=== PATIENT | male | born 1980 | race Caucasian/White ===

== ENCOUNTER 2017-03-06 08:00 | Inpatient (IN) | payer OTHER ==
[2017-03-15] MEDS ORDERED: Heparin 5,000 UNITS/ML VIAL ONE (06:10)
[2017-03-15] MEDS ORDERED: CEFAZOLIN/Water 2 GM/20 ML SYRINGE ONE (06:10)
[2017-03-15] MEDS ORDERED: Midazolam HCl 2 mg/2 ml Vial ONE (06:14)
[2017-03-15] MEDS ORDERED: Fentanyl 250 MCG/5 ML VIAL ONE (06:14)
[2017-03-15] MEDS ORDERED: Fentanyl 100 MCG/2 ML VIAL ONE ×3 (06:14→09:26)
[2017-03-15] MEDS ORDERED: Bupivacaine/Epinephrine 0.25% 30 ML VIAL ONE ×2 (06:30→06:52)
[2017-03-15] MEDS ORDERED: Bupivacaine 0.25% HCL 30 ML VIAL ONE (06:49)
[2017-03-15] MEDS ORDERED: Dexamethasone 20 MG/5 ML VIAL ONE (07:34)
[2017-03-15] MEDS ORDERED: Propofol 200 MG/20 ML VIAL ONE (07:34)
[2017-03-15] MEDS ORDERED: Ketorolac Tromethamine 30 MG/ML VIAL ONE (07:34)
[2017-03-15] MEDS ORDERED: Ondansetron HCl/PF 4 MG/2 ML Vial ONE (07:34)
[2017-03-15] MEDS ORDERED: Lidocaine 1% PF 5 ML VIAL ONE (07:34)
[2017-03-15] MEDS ORDERED: Glycopyrrolate 0.2 MG/ML 5 ML SYRINGE ONE (07:34)
[2017-03-15] MEDS ORDERED: diphenhydrAMINE 25 MG CAP PO PRN (08:06)
[2017-03-15] MEDS ORDERED: Promethazine HCl 25 MG/ML VIAL SLOW IVP PRN (08:06)
[2017-03-15] MEDS ORDERED: Ketorolac Tromethamine 30 MG/ML VIAL IVP PRN (08:06)
[2017-03-15] MEDS ORDERED: HYDROmorphone 2 MG/ML VIAL SLOW IVP PRN (08:06)
[2017-03-15] MEDS ORDERED: diphenhydrAMINE 50 MG/ML VIAL IM PRN (08:06)
[2017-03-15] MEDS ORDERED: Naloxone HCl 0.4 mg/ml Vial IV PRN (08:06)
[2017-03-15] MEDS ORDERED: Zolpidem Tartrate 5 MG TAB PO PRN (08:06)
[2017-03-15] MEDS ORDERED: Meperidine HCl/PF 25 MG/ML VIAL SLOW IVP PRN (08:06)
[2017-03-15] MEDS ORDERED: Promethazine HCl 25 MG/ML VIAL IM PRN ×3 (08:06→10:36)
[2017-03-15] MEDS ORDERED: Ondansetron HCl/PF 4 MG/2 ML Vial IVP PRN ×2 (08:06→10:36)
[2017-03-15] MEDS ORDERED: Morphine Sulfate 2 MG/ML SYRINGE SLOW IVP PRN (08:06)
[2017-03-15] MEDS ORDERED: Fentanyl 5000 MCG/250 ML CADD IVPB PRN (08:06)
[2017-03-15] MEDS ORDERED: diphenhydrAMINE 50 MG/ML VIAL IVP PRN ×2 (08:06→10:36)
[2017-03-15] MEDS ORDERED: Communication Order-Pharmacy FS SCH (08:15)
--- NOTE | 2017-03-15 09:12 | OP ---
DATE OF PROCEDURE: 03/15/2017 PREOPERATIVE DIAGNOSES: 1. Morbid obesity with body mass index of 41. 2. Hypertension. POSTOPERATIVE DIAGNOSES: 1. Morbid obesity with body mass index of 41. 2. Hypertension. PROCEDURES: 1. Laparoscopic sleeve gastrectomy with Karval staple line reinforcements and 38 Thai bougie. 2. Esophagogastroduodenoscopy. SURGEON: Steven Mccoy M.D. ANESTHESIA: General. ESTIMATED BLOOD LOSS: 50 mL. COMPLICATIONS: None. FINDINGS: Normal postoperative EGD. SPECIMEN: Stomach. INDICATIONS: The patient is a 36-year-old male with a history of hypertension and morbid obesity. He has been our preoperative educational seminar, he has undergone preoperative dietary consult and our education class. He had a psychological evaluation. He understands risks, benefits, alternativ e procedures for weight loss. He gives consent to proceed sleeve gastrectomy. He understands the r isk of bleeding, infection, scarring, staple line leakage, need for further surgery, even . PROCEDURE IN TECHNIQUE: The patient was taken to the operating room and placed supine on the table. After general anesthetic was obtained, arms and legs were double strapped to bariatric table. The abdomen is prepped and draped in a sterile fashion. OG tube had been used to decompress the stomac h. Left subcostal 5-mm Optiview trocar was placed in the usual fashion and high-flow pneumoperitone um was obtained. Left and right abdominal 12-mm port and a right subcostal 5-mm port were all place d under direct visualization. The patient was placed in reverse Trendelenburg position. A 5 mm inc ision made at the xiphoid and the Nelsy was used to raise the liver off the GE junction. Short gastrics were taken down from midbody of stomach to the left miriam of the diaphragm. Left miriam, post erior fundus, and angle of His was completely dissected. Short gastrics were taken down to a distan ce of 6 cm proximal to the pylorus. A 38 bougie was brought in its tip and left in the antrum of th e stomach. Multiple loads of an Lamoni stapling device were used to form the sleeve. The first wa s fired at a distance of 6 cm proximal to the pylorus angled up towards the incisura. Multiple load s were then fired up and the stomach was completely up along the bougie, and the stomach was complet elena transected at the angle of His. The stomach was removed from left abdominal incision. This fas cial defect was closed using GraNee needle and 0 Vicryl tie. All port sites were infiltrated using local anesthetic. A 38 bougie is removed and EGD scope was brought in and the stomach insufflated. There was no air leakage through the staple line, no bleeding, no evidence of stricture at the inci ahsan, no evidence of involvement of the GE junction with the staple line. The EGD scope was used to decompress the stomach, was pulled and removed. Nathansen retractor was removed under direct visua lization without bleeding. Pneumoperitoneum was let down and all ports were removed under direct vi sualization without bleeding. Vicryl used to close the fascial defect from left abdominal incisions . All incisions were irrigated and closed using 4-0 Monocryl and Dermabond. The patient went to re covery in stable condition. All instrument counts, needle counts, and lap counts were correct.
[2017-03-15] MEDS ORDERED: Fentanyl 20 MCG/ML 250 ML ONE (09:20)
[2017-03-15] MEDS ORDERED: D5 1/2 NS w/20 mEq KCL 1,000 ML ONE (09:55)
[2017-03-15] MEDS ORDERED: Dextrose 50% Abboject 50 ML SYRINGE SLOW IVP PRN (10:36)
[2017-03-15] MEDS ORDERED: Hydrocodone-Acetamin 15 ML UDCUP PO PRN (10:36)
[2017-03-15] MEDS ORDERED: Dextrose 5% in Water 1,000 ML IV PRN (10:36)
[2017-03-15] MEDS ORDERED: hydrALAZINE 20 MG/ML VIAL SLOW IVP PRN (10:36)
[2017-03-15] MEDS ORDERED: Pantoprazole 40 MG VIAL IVP SCH ×2 (10:36→11:15)
[2017-03-15] MEDS ORDERED: Acetaminophen 1,000 MG in Premix Bag 1 BAG IVPB SCH (12:00)
[2017-03-15 12:14] VITALS: BMI 38.2
[2017-03-15] MEDS: D5 1/2 NS w/20 mEq KCL 1,000 ML IV SCH ×2 (13:51→18:05)
[2017-03-15] MEDS: Acetaminophen 1,000 MG in Premix Bag 1 BAG IVPB SCH ×2 (13:52→20:29)
[2017-03-15] MEDS ORDERED: Enoxaparin Sodium 40 MG/0.4 ML SYRINGE SC SCH (21:00)
[2017-03-16] MEDS: D5 1/2 NS w/20 mEq KCL 1,000 ML IV SCH ×2 (01:55→11:04)
[2017-03-16] MEDS: Acetaminophen 1,000 MG in Premix Bag 1 BAG IVPB SCH (01:56)
[2017-03-16 05:48] LABS: #Lymphocytes 1.4 thou/uL (1.20-3.40); #Monocytes 0.8 thou/uL (0.11-0.59); #Neutrophils 6.7 thou/uL (1.40-6.50); %Basophils 0.4 % (0.0-1.0); %Eosinophils 0.1 % (0.0-10.0); %Lymphocytes 15.9 % (21.0-51.0); %Monocytes 9.1 % (0.0-10.0); Hematocrit 41.1 % (42.0-52.0); Mean Platelet Volume 5.9 fL (7.4-10.4); Red Blood Cell (RBC) Count 4.51 mill/uL (4.70-6.10)
[2017-03-16 06:03] LABS: Anion Gap 13 mmol/L (10-20); BUN (Urea Nitrogen) 8 mg/dL (8.9-20.6); Calc. Creatinine Clearance 222 mL/min (70-130); Carbon Dioxide 23 mmol/L (22-29); Chloride 105 mmol/L (98-107); Estimated GFR-MDRD Greater than 90
--- NOTE | 2017-03-16 08:52 | RAD ---
MODIFIED UPPER GI: Date: 03/16/17 INDICATION: Status post gastric sleeve procedure. FLUOROSCOPIC TIME: 0.8 minutes. TOTAL EXPOSURE: 1086.6 mGy*cm\S\2. FINDINGS: No contrast extravasation is seen along the gastroplasty site. There is no evidence of obstruction. IMPRESSION: No evidence of leak or obstruction at the gastroplasty site. POS: [facility]
[2017-03-16] MEDS ORDERED: Pantoprazole 40 MG VIAL IVP SCH (09:00)
--- NOTE | 2017-03-16 11:39 | DIS ---
DATE OF ADMISSION: 03/15/2017 DATE OF DISCHARGE: 03/16/2017 ADMIT DIAGNOSES: Morbid obesity, hypertension. DISCHARGE DIAGNOSES: Morbid obesity, hypertension. PROCEDURES: Laparoscopic sleeve gastrectomy and EGD by Dr. Mccoy without complication. CONDITION AT DISCHARGE: Improved. STAFF: Dr. Steven Mccoy. HOSPITAL COURSE: On postop day 1, the patient is doing well. His swallow test shows no leak. He i s tolerating liquids without difficulty. His vital signs are stable. His abdomen is soft, nontende r. His wounds are healing well. He is discharged home today. Prescriptions for Lortab elixir and Zofran have already been called into his pharmacy. He will follow up with me in 2 weeks. Dietary i nstructions have already been given in his preoperative education class.
[2017-03-16] MEDS ORDERED: GASTROGRAFIN 30 ML BOT ONE (12:00)
[2017-03-16 12:16] VITALS: BP 150/80; TEMP 97.9
== END 2017-03-16 13:34 | disposition home or self-care (01) | DRG 621 ==
LOC: SURG A 03-15 05:42
PROVIDERS: ADMIT Surgery; ATTEND Surgery
PROC: 0DB64Z3 Excision of Stomach, Percutaneous Endoscopic Approach, Vertical (ICD-10-PCS; principal; 2017-03-15)
DX: E66.01 Morbid (severe) obesity due to excess calories (principal); I10 Essential (primary) hypertension; Z68.41 Body mass index [BMI] 40.0-44.9, adult
CPT/HCPCS: 36415; 74241; 80048; 85025; 88307; 88312; 94760; C9113; J0131; J1100; J1644; J1650; J1885; J2001; J2250; J2405; J2550; J2704; J3010; S0020

== ENCOUNTER 2017-03-06 08:02 | Outpatient (CLI) | payer OTHER ==
[2017-03-06 10:24] LABS: #Basophils 0.1 thou/uL (0.0-0.2); #Eosinphils 0.1 thou/uL (0.0-0.7); #Lymphocytes 1.8 thou/uL (1.20-3.40); #Monocytes 0.5 thou/uL (0.11-0.59); #Neutrophils 3.1 thou/uL (1.40-6.50); %Basophils 0.9 % (0.0-1.0); %Eosinophils 1.1 % (0.0-10.0); %Lymphocytes 31.8 % (21.0-51.0); %Monocytes 9.5 % (0.0-10.0); Hematocrit 47.3 % (42.0-52.0); Mean Platelet Volume 6.1 fL (7.4-10.4); Red Blood Cell (RBC) Count 5.25 mill/uL (4.70-6.10); White Blood Cell (WBC) Count 5.5 thou/uL (4.8-10.8)
[2017-03-06 10:41] LABS: ALT (SGPT) 31 U/L (8-55); AST (SGOT) 16 U/L (5-34); Alkaline Phosphatase 70 U/L (40-150); Anion Gap 11 mmol/L (10-20); BUN (Urea Nitrogen) 19 mg/dL (8.9-20.6); Bilirubin, Direct 0.2 mg/dL (0.1-0.3); Bilirubin, Total 0.5 mg/dL (0.2-1.2); Calc. Creatinine Clearance 0 mL/min (70-130); Calcium 10.1 mg/dL (7.8-10.44); Carbon Dioxide 26 mmol/L (22-29); Chloride 105 mmol/L (98-107); Estimated GFR-MDRD Greater than 90; Globulin 2.9 g/dL (2.4-3.5); Protein, Total 7.4 g/dL (6.0-8.3)
--- NOTE | 2017-03-06 11:52 | RAD ---
CHEST PA AND LATERAL: History: 36-year-old male for pre-operative evaluation. FINDINGS: Heart size is normal. The lungs are clear. No pneumonia, edema, pleural effusion or other acute proc ess. IMPRESSION: No acute intrathoracic disease. POS: [facility]
== END 2017-03-06 08:03 | disposition home or self-care (01) ==
LOC: LABBT 08:02
PROVIDERS: ATTEND Surgery
DX: Z01.818 Encounter for other preprocedural examination (principal); E66.01 Morbid (severe) obesity due to excess calories
CPT/HCPCS: 71020; 80053; 80076; 83036; 85025; 93005; 93010